=== PATIENT | female | born 1970 | race Caucasian/White ===

== ENCOUNTER 2016-06-21 17:19 | Emergency (ER) | payer SELFPAY ==
[~2016-06-21] VITALS: Ht 162.6 cm; Wt 85.3 kg
[~2016-06-21 17:19] MED LIST: ACHD5005 PO; ALPR.5T PO; ALPR1T PO; AMPH15CA3 PO; Anti-depressant; BPR150TCR PO; CTLP20T PO; CYCL10TA9 PO; DOXY100C2 PO; FLUO40CA12 PO; HYDR1CAP2 PO; IBP800T PO; MTF500T PO; NAPR-243 PO; PRD20T PO; PRD50T PO; TRAM50TA2 PO; TRM50T PO
[2016-06-21] MEDS ORDERED: ALPR2TAB2 PO (18:12)
--- NOTE | 2016-06-21 21:30 | ED Neck-Back Pain/Injury ---
General Chief Complaint: Head/Cervical Problems Stated Complaint: BACK OF NECK PAIN AND SWELLING/MIGRAINE Nursing Triage Note: pt c/o lower, posterior neck swelling x 2-3 weeks. fritz henry gave her muscle relaxers for neck et back pain. she reports pain radiating into head et causing headache starting yesterday. Nursing Sepsis Screen: No Definite Risk Source of Information: Patient Exam Limitations: No Limitations History of Present Illness Time Seen by Provider: 21:30 Initial Comments 45-year-old female patient presents to the emergency department complains of lower posterior neck swelling for to 3 weeks. Patient states she was seen by Fritz Henry at [facility] was given muscle relaxants without improvement in symptoms. States now pain is radiating up the neck and scalp causing a headache. Does complain of photophobia and sound sensitivity. Timing/Duration: Getting Worse, Other (2-3 wks.) Pain/Injury Location: Neck Radiation: Other (radiates up the neck and scalp causing a headache. ) Method of Injury: Unknown Modifying Factors: Improves With Immobilization, Worse With Movement, Worse With Other (no improvement with cyclobenzaprine.) Associated Symptoms: No muscle spasms, No weakness, No numbness in legs/feet, No tingling in legs/feet, No sensory/motor loss, No loss of bladder control, No loss of bowel control Allergies and Home Medications Allergies Coded Allergies: No Known Drug Allergies (Unverified , 03/30/11) Home Medications Alprazolam 2 Mg Tablet, 2 MG PO BID PRN for ANXIETY, (Reported) Cyclobenzaprine HCl 10 Mg Tablet, 10 MG PO Q8H PRN for SPASMS, #14 Ref 0 Prescribed by: DAVID MOHAN on 12/06/15 1349 Cyclobenzaprine HCl 10 Mg Tablet, 10 MG PO Q8H PRN for SPASMS, #14 Ref 0 Prescribed by: DAVID MOHAN on 06/21/16 213 Fluoxetine HCl 40 Mg Capsule, 60 MG PO DAILY, (Reported) Naproxen 500 Mg Tablet, 500 MG PO BID, #20 Ref 0 Prescribed by: DAVID MOHAN on 06/21/162137 Prednisone 20 Mg Tab, 40 MG PO DAILY for 5 Days, #10 Ref 0 Prescribed by: DAVID MOHAN on 06/21/162137 Tramadol HCl 50 Mg Tablet, 50 MG PO Q4H PRN for PAIN, #20 Ref 0 Prescribed by: DAVID MOHAN on 12/06/15 2599 Constitutional: No chills, No dizziness, No fever, No malaise, No weakness EENTM: other ((+) photophobia and sound sensitivities. ), No ear discharge, No ear pain, No mouth pain, No nose congestion, No throat pain, No vision loss Respiratory: no symptoms reported Cardiovascular: no symptoms reported Gastrointestinal: No abdominal pain, No diarrhea, No loss of appetite, No nausea, No vomiting Genitourinary: no symptoms reported Musculoskeletal: see HPI, back pain (chronic back pain.), neck pain Skin: No change in color, No lesions, No lumps, No rash Psychiatric/Neurological: Headache, Denies Numbness, Denies Paresthesia, Denies Seizure, Denies Tingling, Denies Weakness All Other Systems Reviewed Negative Unless Noted: Yes (Negative excepted noted.) Past Yzbrtop-Rhqnoa-Osvgat Hx Patient Social History Alcohol Use: Denies Use Recreational Drug Use: No Smoking Status: Current Everyday Smoker Type Used: Cigarettes Recent Foreign Travel: No Contact w/Someone Who Travel: No Recent Infectious Disease Expo: No Recent Hopitalizations: No Immunizations Up To Date Tetanus Booster (TDap): Less than 5yrs PED Vaccines UTD: Yes Date of Pneumonia Vaccine: Nov 24, 2009 Date of Influenza Vaccine: Dec 25, 2011 Surgeries HX Surgeries: Yes Surgeries: Section, Hysterectomy, Orthopedic Respiratory Hx Respiratory Disorders: Yes Respiratory Disorders: Tuberculosis Cardiovascular Hx Cardiac Disorders: No Neurological Hx Neurological Disorders: No Reproductive System Hx Reproductive Disorders: Yes (fibroids) Female Reproductive Disorders: Menstrual 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 Genitourinary Hx Genitourinary Disorders: No Gastrointestinal Hx Gastrointestinal Disorders: No Musculoskeletal Hx Musculoskeletal Disorders: Yes Musculoskeletal Disorders: Chronic Back Pain Endocrine Hx Endocrine Disorders: No (STATES SHE TAKES METFORMIN FOR WEIGHT LOSS, NOT DIABETES) HEENT HX ENT Disorders: No Cancer Hx Cancer: No Psychosocial Hx Psychiatric Problems: Yes Behavioral Health Disorders: Anxiety, Depression Integumentary HX Skin/Integumentary Disorder: No Blood Transfusions Hx Blood Disorders: No Adverse Reaction to a Blood Tr: No Reviewed Nursing Assessment Reviewed/Agree w Nursing PMH: Yes Family Medical History Significant Family History: No Pertinent Family Hx, Cancer Physical Exam Vital Signs Capillary Refill : Less Than 3 Seconds General Appearance: No Apparent Distress, WD/WN HEENT: PERRL/EOMI, TMs Normal, Normal ENT Inspection, Pharynx Normal, Photophobia Neck: Supple, Limited Range of Motion, Tender Lateral ((lateral posterior neck) ), No Tender Midline, Other ((+) muscle spasm of the posterior neck muscles. 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 Plan for discharge to home. Patient given Toradol , Norflex, Benadryl, and Zofran. Patient reports improvement in symptoms with medications. Patient ambulated from the emergency department without difficulty. Impression Impression: Primary Impression: Torticollis Additional Impression: Tension headache Disposition: 01 HOME, SELF-CARE Condition: Improved Departure-Patient Inst. Decision time for Depature: 21:37 Referrals: [facility] (PCP/Family) Primary Care Physician Patient Instructions: Tension Headache (DC), Torticollis (DC) Add. Discharge Instructions: All discharge instructions reviewed with patient and/or family. Voiced understanding. Medications as instructed. Tylenol Extra Strength over-the- counter as directed for pain. Drink plenty fluids. Rest. Follow-up with your family practitioner for recheck if no improvement in symptoms. Call for appointment time if needed. Return to the emergency department for worsened pain, numbness, weakness, headache, dizziness, changes in behavior, slurred speech, shortness of air, chest pain, seizure, vomiting, or any other concerns. Scripts Cyclobenzaprine HCl (Cyclobenzaprine HCl) 10 Mg Tablet 10 MG PO Q8H Y for SPASMS, #14 TAB 0 Refills Prov: DAVID MOHAN 06/21/16 Naproxen (Naprosyn) 500 Mg Tablet 500 MG PO BID, #20 TAB 0 Refills Prov: DAVID MOHAN 06/21/16 Prednisone (Prednisone) 20 Mg Tab 40 MG PO DAILY for 5 Days, #10 TAB 0 Refills Prov: DAVID MOHAN 06/21/16 DAVID MOHAN Jun 21, 2016 21:30
[2016-06-21] MEDS ORDERED: KETOROLAC 60 MG/2 ML VIAL IM STA (21:35)
[2016-06-21] MEDS ORDERED: ORPHENADRINE 60 MG/2 ML (NORFLEX) AMP IM STA (21:35)
[2016-06-21] MEDS ORDERED: ONDANSETRON 4 MG (ZOFRAN) ORAL DISSOLVE TAB SL STA (21:35)
[2016-06-21] MEDS ORDERED: NAPR500T PO (21:38)
[2016-06-21] MEDS ORDERED: PRD20T PO (21:38)
[2016-06-21] MEDS ORDERED: CYCL10TA9 PO (21:38)
[2016-06-21] MEDS ORDERED: diphenhydrAMINE 25 MG TAB (BENADRYL) PO ONE (21:45)
[2016-06-21] MEDS ORDERED: RX-TRAMADOL 50 MG (ULTRAM) TAB PPK#4 PO STA (22:15)
[2016-06-21 22:23] VITALS: BP 112/88
--- OUTSIDE RECORDS SUMMARY | 2016-07-16 05:08 | XMS REPORT ---
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 Phone CLYDE CHRIS Unavailable PROBLEMS Type Condition ICD9-CM Code [id number] Code Onset Dates Condition Status SNOMED Code Problem Unspecified backache 724.5 Active 983363297 Problem Excessive or frequent menstruation 626.2 Active 502182920 Problem Dermatophytosis of nail 110.1 Active 205304141 Problem Encounter for long-term (current) use of other medications V58.69 Active 853810472 Problem Hematuria, unspecified 599.70 Active 54825535 Problem Anxiety state, unspecified 300.00 Active 360673728 Problem Major depressive disorder, recurrent episode, moderate 296.32 Active 71277956 Problem Dysmenorrhea 625.3 Active 327952124 Problem Leiomyoma of uterus, unspecified 218.9 Active 56727146 Problem Obesity, unspecified 278.00 Active 140697365 Problem Attention deficit disorder of childhood without mention of hyperactivity 314.00 Active 51227169 ALLERGIES Unknown Allergies SOCIAL HISTORY No smoking Hx information available PLAN OF CARE VITAL SIGNS MEDICATIONS Medication Instructions Dosage Frequency Start Date End Date Duration Status Cyclobenzaprine HCl 10 mg Orally 2 times a day 1 tablet 12h Nov, Active Tramadol HCl 50 mg Orally every 6 hrs 1 tablet as needed 6h Nov, Active RESULTS No Results PROCEDURES No Known procedures IMMUNIZATIONS No Known Immunizations
--- OUTSIDE RECORDS SUMMARY | 2016-07-16 05:08 | XMS REPORT | Continuity of Care Document ---
Author Author [facility] Organization [facility] Address Unknown Phone Unavailable Allergies Active Description Code Type Severity Reaction Onset Reported/Identified Relationship to Patient Clinical Status Yes No Known Drug Allergies [id number] Drug Allergy Unknown N/ A 03/30/2011 Medications Problems Date Dx Coded Attending Type Code Diagnosis Diagnosed By 07/20/2010 Ot 723.1 CERVICALGIA 07/20/2010 Ot 784.0 HEADACHE 07/29/2010 296.90 MOOD DISORDER 07/29/2010 300.02 AN GEN ANXIETY 07/29/2010 301.3 QUARRELSOMENESS (EXPLOSIVE PERSONALITY) 07/29/2010 780.50 SLEEP DISTURBANCE, UNSPECIFIED 07/29/2010 780.79 MALAISE AND FATIGUE 07/29/2010 296.90 MOOD DISORDER 07/29/2010 300.02 AN GEN ANXIETY 07/29/2010 301.3 QUARRELSOMENESS (EXPLOSIVE PERSONALITY) 07/29/2010 780.50 SLEEP DISTURBANCE, UNSPECIFIED 07/29/2010 780.79 MALAISE AND FATIGUE 07/29/2010 296.90 MOOD DISORDER 07/29/2010 300.02 AN GEN ANXIETY 07/29/2010 301.3 QUARRELSOMENESS (EXPLOSIVE PERSONALITY) 07/29/2010 780.50 SLEEP DISTURBANCE, UNSPECIFIED 07/29/2010 780.79 MALAISE AND FATIGUE 07/29/2010 296.90 MOOD DISORDER 07/29/2010 300.02 AN GEN ANXIETY 07/29/2010 301.3 QUARRELSOMENESS (EXPLOSIVE PERSONALITY) 07/29/2010 780.50 SLEEP DISTURBANCE, UNSPECIFIED 07/29/2010 780.79 MALAISE AND FATIGUE 07/29/2010 296.90 MOOD DISORDER 07/29/2010 300.02 AN GEN ANXIETY 07/29/2010 301.3 QUARRELSOMENESS (EXPLOSIVE PERSONALITY) 07/29/2010 780.50 SLEEP DISTURBANCE, UNSPECIFIED 07/29/2010 780.79 MALAISE AND FATIGUE 07/29/2010 296.90 MOOD DISORDER 07/29/2010 300.02 AN GEN ANXIETY 07/29/2010 301.3 QUARRELSOMENESS (EXPLOSIVE PERSONALITY) 07/29/2010 780.50 SLEEP DISTURBANCE, UNSPECIFIED 07/29/2010 780.79 MALAISE AND FATIGUE 07/29/2010 296.90 MOOD DISORDER 07/29/2010 300.02 AN GEN ANXIETY 07/29/2010 301.3 QUARRELSOMENESS (EXPLOSIVE PERSONALITY) 07/29/2010 780.50 SLEEP DISTURBANCE, UNSPECIFIED 07/29/2010 780.79 MALAISE AND FATIGUE 07/29/2010 CHRIS TANG APRN 296.90 MOOD DISORDER 07/29/2010 CHRSI TANG APRN 300.02 AN GEN ANXIETY 07/29/2010 CHRIS TANG APRN 301.3 QUARRELSOMENESS (EXPLOSIVE PERSONALITY) 07/29/2010 CHRIS TANG APRN 780.50 SLEEP DISTURBANCE, UNSPECIFIED 07/29/2010 CHRIS TANG APRN 780.79 MALAISE AND FATIGUE 07/29/2010 CHRIS TANG APRN 296.90 MOOD DISORDER 07/29/2010 CHRIS TANG APRN 300.02 AN GEN ANXIETY 07/29/2010 CHRIS TANG APRN 301.3 QUARRELSOMENESS (EXPLOSIVE PERSONALITY) 07/29/2010 CHRIS TANG APRN 780.50 SLEEP DISTURBANCE, UNSPECIFIED 07/29/2010 CHRIS TANG APRN 780.79 MALAISE AND FATIGUE 07/29/2010 CHRIS TANG APRN 296.90 MOOD DISORDER 07/29/2010 CHRIS TANG APRN 300.02 AN GEN ANXIETY 07/29/2010 CHRIS TANG APRN 301.3 QUARRELSOMENESS (EXPLOSIVE PERSONALITY) 07/29/2010 CHRIS TANG APRN 780.50 SLEEP DISTURBANCE, UNSPECIFIED 07/29/2010 CHRIS TANG APRN 780.79 MALAISE AND FATIGUE 07/29/2010 MELENDEZ DO ADELAIDE K 296.90 MOOD DISORDER 07/29/2010 MELENDEZ DO [place] K 300.02 AN GEN ANXIETY 07/29/2010 MELENDEZ DO, ADELAIDE K 301.3 QUARRELSOMENESS (EXPLOSIVE PERSONALITY) 07/29/2010 MELENDEZ DO A[place]LAIDE K 780.50 SLEEP DISTURBANCE, UNSPECIFIED 07/29/2010 MELENDEZ DO, ADELAIDE K 780.79 MALAISE AND FATIGUE 07/29/2010 CHRIS TANG APRN T 296.90 MOOD DISORDER 07/29/2010 CHRIS TANG APRN T 300.02 AN GEN ANXIETY 07/29/2010 CHRIS TANG APRN T 301.3 QUARRELSOMENESS (EXPLOSIVE PERSONALITY) 07/29/2010 CHRIS TANG APRN T 780.50 SLEEP DISTURBANCE, UNSPECIFIED 07/29/2010 CHRIS TANG APRN T 780.79 MALAISE AND FATIGUE 07/29/2010 CHRIS TANG APRN T 296.90 MOOD DISORDER 07/29/2010 CHRIS TANG APRN T 300.02 AN GEN ANXIETY 07/29/2010 CHRIS TANG APRN T 301.3 QUARRELSOMENESS (EXPLOSIVE PERSONALITY) 07/29/2010 CHRIS TANG APRN T 780.50 SLEEP DISTURBANCE, UNSPECIFIED 07/29/2010 CHRIS TANG APRN T 780.79 MALAISE AND FATIGUE 07/29/2010 CHRIS TANG APRN T 296.90 MOOD DISORDER 07/29/2010 CHRIS TANG APRN 300.02 AN GEN ANXIETY 07/29/2010 CHRIS TANG APRN 301.3 QUARRELSOMENESS (EXPLOSIVE PERSONALITY) 07/29/2010 CHRIS TANG APRN T 780.50 SLEEP DISTURBANCE, UNSPECIFIED 07/29/2010 CHRIS TANG APRN T 780.79 MALAISE AND FATIGUE 07/29/2010 CHRIS TANG APRN T 296.90 MOOD DISORDER 07/29/2010 CHRIS TANG APRN T 300.02 AN GEN ANXIETY 07/29/2010 CHRIS TANG APRN T 301.3 QUARRELSOMENESS (EXPLOSIVE PERSONALITY) 07/29/2010 CHRIS TANG APRN T 780.50 SLEEP DISTURBANCE, UNSPECIFIED 07/29/2010 CHRIS TANG APRN T 780.79 MALAISE AND FATIGUE 07/29/2010 CHRIS TANG APRN T 296.90 MOOD DISORDER 07/29/2010 CHRIS TANG APRN T 300.02 AN GEN ANXIETY 07/29/2010 CHRIS TANG APRN T 301.3 QUARRELSOMENESS (EXPLOSIVE PERSONALITY) 07/29/2010 CHRIS TANG APRN T 780.50 SLEEP DISTURBANCE, UNSPECIFIED 07/29/2010 CHRIS TANG APRN T 780.79 MALAISE AND FATIGUE 11/25/2010 616.0 NABOTHIAN CYST 11/25/2010 625.0 DYSPAREUNIA 11/25/2010 626.4 irregular length of menstrual periods 11/25/2010 728.85 MUSCLE SPASM 11/25/2010 V16.3 FAM HX CANCER, BREAST 11/25/2010 V72.31 ROUTINE PELVIC EXAM 11/25/2010 616.0 NABOTHIAN CYST 11/25/2010 625.0 DYSPAREUNIA 11/25/2010 626.4 irregular length of menstrual periods 11/25/2010 728.85 MUSCLE SPASM 11/25/2010 V16.3 FAM HX CANCER, BREAST 11/25/2010 V72.31 ROUTINE PELVIC EXAM 11/25/2010 616.0 NABOTHIAN CYST 11/25/2010 625.0 DYSPAREUNIA 11/25/2010 626.4 irregular length of menstrual periods 11/25/2010 728.85 MUSCLE SPASM 11/25/2010 V16.3 FAM HX CANCER, BREAST 11/25/2010 V72.31 ROUTINE PELVIC EXAM 11/25/2010 616.0 NABOTHIAN CYST 11/25/2010 625.0 DYSPAREUNIA 11/25/2010 626.4 irregular length of menstrual periods 11/25/2010 728.85 MUSCLE SPASM 11/25/2010 V16.3 FAM HX CANCER, BREAST 11/25/2010 V72.31 ROUTINE PELVIC EXAM 11/25/2010 616.0 NABOTHIAN CYST 11/25/2010 625.0 DYSPAREUNIA 11/25/2010 626.4 irregular length of menstrual periods 11/25/2010 728.85 MUSCLE SPASM 11/25/2010 V16.3 FAM HX CANCER, BREAST 11/25/2010 V72.31 ROUTINE PELVIC EXAM 11/25/2010 616.0 NABOTHIAN CYST 11/25/2010 625.0 DYSPAREUNIA 11/25/2010 626.4 irregular length of menstrual periods 11/25/2010 728.85 MUSCLE SPASM 11/25/2010 V16.3 FAM HX CANCER, BREAST 11/25/2010 V72.31 ROUTINE PELVIC EXAM 11/25/2010 616.0 NABOTHIAN CYST 11/25/2010 625.0 DYSPAREUNIA 11/25/2010 626.4 irregular length of menstrual periods 11/25/2010 728.85 MUSCLE SPASM 11/25/2010 V16.3 FAM HX CANCER, BREAST 11/25/2010 V72.31 ROUTINE PELVIC EXAM 11/25/2010 CHRIS TANG APRN 616.0 NABOTHIAN CYST 11/25/2010 CHRIS TANG APRN 625.0 DYSPAREUNIA 11/25/2010 CHRIS TANG APRN 626.4 irregular length of menstrual periods 11/25/2010 CHRIS TANG APRN 728.85 MUSCLE SPASM 11/25/2010 CHRIS TANG APRN V16.3 FAM HX CANCER, BREAST 11/25/2010 CHRIS TANG APRN V72.31 ROUTINE PELVIC EXAM 11/25/2010 CHRIS TANG APRN 616.0 NABOTHIAN CYST 11/25/2010 CHRIS TANG APRN 625.0 DYSPAREUNIA 11/25/2010 CHRIS TANG APRN 626.4 irregular length of menstrual periods 11/25/2010 CHRIS TANG APRN 728.85 MUSCLE SPASM 11/25/2010 CHRIS TANG APRN V16.3 FAM HX CANCER, BREAST 11/25/2010 CHRIS TANG APRN V72.31 ROUTINE PELVIC EXAM 11/25/2010 CHRIS TANG APRN 616.0 NABOTHIAN CYST 11/25/2010 CRHIS TANG APRN 625.0 DYSPAREUNIA 11/25/2010 CHRIS TANG APRN 626.4 irregular length of menstrual periods 11/25/2010 CHRIS TANG APRN 728.85 MUSCLE SPASM 11/25/2010 CHRIS TANG APRN V16.3 FAM HX CANCER, BREAST 11/25/2010 CHRIS TANG APRN V72.31 ROUTINE PELVIC EXAM 11/25/2010 AL DO A[place]LAIDE K 616.0 NABOTHIAN CYST 11/25/2010 MELENDEZ DO ADELAIDE K 625.0 DYSPAREUNIA 11/25/2010 MELENDEZ DO, ADELAIDE K 626.4 irregular length of menstrual periods 11/25/2010 MELENDEZ DO [place] K 728.85 MUSCLE SPASM 11/25/2010 MELENDEZ DO [place] K V16.3 FAM HX CANCER, BREAST 11/25/2010 MELENDEZ DO [place] K V72.31 ROUTINE PELVIC EXAM 11/25/2010 CHRIS TANG APRN 616.0 NABOTHIAN CYST 11/25/2010 CHRIS TANG APRN 625.0 DYSPAREUNIA 11/25/2010 CLYDE HAND ALTERATIONS TAILOR, CHRIS T 626.4 IRREGULAR LENGTH OF MENSTRUAL PERIODS 11/25/2010 CHRIS TANG APRN T 728.85 MUSCLE SPASM 11/25/2010 CHRIS TANG APRN T V16.3 FAM HX CANCER, BREAST 11/25/2010 CHRIS TANG APRN T V72.31 ROUTINE PELVIC EXAM 11/25/2010 CHRIS TANG APRN T 616.0 NABOTHIAN CYST 11/25/2010 CHRIS TANG APRN T 625.0 DYSPAREUNIA 11/25/2010 CHRIS TANG APRN 626.4 IRREGULAR LENGTH OF MENSTRUAL PERIODS 11/25/2010 CHRIS TANG APRN T 728.85 MUSCLE SPASM 11/25/2010 CHRIS TANG APRN V16.3 FAM HX CANCER, BREAST 11/25/2010 CHRIS TANG APRN V72.31 ROUTINE PELVIC EXAM 11/25/2010 CHRIS TANG APRN 616.0 NABOTHIAN CYST 11/25/2010 CHRIS TANG APRN 625.0 DYSPAREUNIA 11/25/2010 CHRIS TANG APRN 626.4 IRREGULAR LENGTH OF MENSTRUAL PERIODS 11/25/2010 CHRIS TANG APRN T 728.85 MUSCLE SPASM 11/25/2010 CHRIS TANG APRN V16.3 FAM HX CANCER, BREAST 11/25/2010 CHRIS TANG APRN V72.31 ROUTINE PELVIC EXAM 11/25/2010 CHRIS TANG APRN T 616.0 NABOTHIAN CYST 11/25/2010 CHRIS TANG APRN 625.0 DYSPAREUNIA 11/25/2010 CHRIS TANG APRN 626.4 IRREGULAR LENGTH OF MENSTRUAL PERIODS 11/25/2010 CHRIS TANG APRN T 728.85 MUSCLE SPASM 11/25/2010 CHRIS TANG APRN V16.3 FAM HX CANCER, BREAST 11/25/2010 CHRIS TANG APRN T V72.31 ROUTINE PELVIC EXAM 11/25/2010 CHRIS TANG APRN T 616.0 NABOTHIAN CYST 11/25/2010 CHRIS TANG APRN T 625.0 DYSPAREUNIA 11/25/2010 CHRIS TANG APRN T 626.4 IRREGULAR LENGTH OF MENSTRUAL PERIODS 11/25/2010 CHRIS TANG APRN T 728.85 MUSCLE SPASM 11/25/2010 CHRIS TANG APRN V16.3 FAM HX CANCER, BREAST 11/25/2010 CHRIS TANG APRN V72.31 ROUTINE PELVIC EXAM 03/30/2011 Ot 466.0 ACUTE BRONCHITIS 03/30/2011 Ot 786.2 COUGH 03/30/2011 Ot V15.82 HISTORY OF TOBACCO USE 05/20/2011 Ot 079.99 VIRAL INFECTION NOS 05/20/2011 Ot 780.60 FEVER, UNSPECIFIED 05/20/2011 Ot 786.2 COUGH 07/09/2011 Ot 724.2 LUMBAGO 10/20/2011 Ot 311 DEPRESSIVE DISORDER NEC 10/20/2011 Ot 786.50 CHEST PAIN NOS 10/25/2011 296.32 MO DEPRESSIVE RECURRENT MODERATE 10/25/2011 300.00 AN ANXIETY UNSPEC 10/25/2011 296.32 MO DEPRESSIVE RECURRENT MODERATE 10/25/2011 300.00 AN ANXIETY UNSPEC 10/25/2011 296.32 MO DEPRESSIVE RECURRENT MODERATE 10/25/2011 300.00 AN ANXIETY UNSPEC 10/25/2011 296.32 MO DEPRESSIVE RECURRENT MODERATE 10/25/2011 300.00 AN ANXIETY UNSPEC 10/25/2011 296.32 MO DEPRESSIVE RECURRENT MODERATE 10/25/2011 300.00 AN ANXIETY UNSPEC 10/25/2011 296.32 MO DEPRESSIVE RECURRENT MODERATE 10/25/2011 300.00 AN ANXIETY UNSPEC 10/25/2011 296.32 MO DEPRESSIVE RECURRENT MODERATE 10/25/2011 300.00 AN ANXIETY UNSPEC 10/25/2011 CHRIS TANG APRN 296.32 MO DEPRESSIVE RECURRENT MODERATE 10/25/2011 CHRIS TANG APRN 300.00 AN ANXIETY UNSPEC 10/25/2011 CHRIS ATNG APRN 296.32 MO DEPRESSIVE RECURRENT MODERATE 10/25/2011 CHRIS TANG APRN 300.00 AN ANXIETY UNSPEC 10/25/2011 CHRIS TANG APRN 296.32 MO DEPRESSIVE RECURRENT MODERATE 10/25/2011 CHRIS TANG APRN 300.00 AN ANXIETY UNSPEC 10/25/2011 A[place]LAIDE MELENDEZ DO 296.32 MO DEPRESSIVE RECURRENT MODERATE 10/25/2011 [place] MELENDEZ DO 300.00 AN ANXIETY UNSPEC 10/25/2011 CHRIS TANG APRN 296.32 MO DEPRESSIVE RECURRENT MODERATE 10/25/2011 CHRIS TANG APRN 300.00 AN ANXIETY UNSPEC 10/25/2011 CHRIS TANG APRN 296.32 MO DEPRESSIVE RECURRENT MODERATE 10/25/2011 CHRIS TANG APRN 300.00 AN ANXIETY UNSPEC 10/25/2011 CHRIS TANG APRN 296.32 MO DEPRESSIVE RECURRENT MODERATE 10/25/2011 CHRIS TANG APRN 300.00 AN ANXIETY UNSPEC 10/25/2011 CHRIS TANG APRN 296.32 MO DEPRESSIVE RECURRENT MODERATE 10/25/2011 CHIRS TANG APRN 300.00 AN ANXIETY UNSPEC 10/25/2011 CHRIS TANG APRN 296.32 MO DEPRESSIVE RECURRENT MODERATE 10/25/2011 CHRIS TANG APRN 300.00 AN ANXIETY UNSPEC 03/29/2012 Ot 844.9 SPRAIN OF KNEE LEG NOS 03/29/2012 Ot 959.7 LOWER LEG INJURY NOS 03/29/2012 Ot E000.8 OTHER EXTERNAL CAUSE STATUS 03/29/2012 Ot E849.0 ACCIDENT IN HOME 03/29/2012 Ot E884.2 FALL FROM CHAIR 05/20/2012 218.9 LEIOMYOMA OF UTERUS UNSPECIFIED 05/20/2012 625.3 DYSMENORRHEA 05/20/2012 626.2 MENORRHAGIA 05/20/2012 218.9 LEIOMYOMA OF UTERUS UNSPECIFIED 05/20/2012 625.3 DYSMENORRHEA 05/20/2012 626.2 MENORRHAGIA 05/20/2012 218.9 LEIOMYOMA OF UTERUS UNSPECIFIED 05/20/2012 625.3 DYSMENORRHEA 05/20/2012 626.2 MENORRHAGIA 05/20/2012 218.9 LEIOMYOMA OF UTERUS UNSPECIFIED 05/20/2012 625.3 DYSMENORRHEA 05/20/2012 626.2 MENORRHAGIA 05/20/2012 218.9 LEIOMYOMA OF UTERUS UNSPECIFIED 05/20/2012 625.3 DYSMENORRHEA 05/20/2012 626.2 MENORRHAGIA 05/20/2012 CHRIS TANG APRN 218.9 LEIOMYOMA OF UTERUS UNSPECIFIED 05/20/2012 CHRIS TANG APRN 625.3 DYSMENORRHEA 05/20/2012 CHRIS TANG APRN 626.2 MENORRHAGIA 05/20/2012 CHRIS TANG APRN 218.9 LEIOMYOMA OF UTERUS UNSPECIFIED 05/20/2012 CHRIS TANG APRN 625.3 DYSMENORRHEA 05/20/2012 CHRIS TANG APRN 626.2 MENORRHAGIA 05/20/2012 CHRIS TANG APRN 218.9 LEIOMYOMA OF UTERUS UNSPECIFIED 05/20/2012 CHRIS TANG APRN 625.3 DYSMENORRHEA 05/20/2012 CHRIS TANG APRN T 626.2 MENORRHAGIA 05/20/2012 MELENDEZ DO, ADELAIDE K 218.9 LEIOMYOMA OF UTERUS UNSPECIFIED 05/20/2012 MELENDEZ DO, [place]LAIDE K 625.3 DYSMENORRHEA 05/20/2012 MELENDEZ DO, A[place]LAIDE K 626.2 MENORRHAGIA 05/20/2012 CHRIS TANG APRN T 218.9 LEIOMYOMA OF UTERUS UNSPECIFIED 05/20/2012 CHRIS TANG APRN T 625.3 DYSMENORRHEA 05/20/2012 CHRIS TANG APRN T 626.2 MENORRHAGIA 05/20/2012 CHRIS TANG APRN T 218.9 LEIOMYOMA OF UTERUS UNSPECIFIED 05/20/2012 CHRIS TANG APRN 625.3 DYSMENORRHEA 05/20/2012 CHRIS TANG APRN T 626.2 MENORRHAGIA 05/20/2012 CHRIS TANG APRN 218.9 LEIOMYOMA OF UTERUS UNSPECIFIED 05/20/2012 CHRIS TANG APRN T 625.3 DYSMENORRHEA 05/20/2012 CHRIS TANG APRN T 626.2 MENORRHAGIA 05/20/2012 CHRIS TANG APRN T 218.9 LEIOMYOMA OF UTERUS UNSPECIFIED 05/20/2012 CHRIS TANG APRN T 625.3 DYSMENORRHEA 05/20/2012 CHRIS TANG APRN T 626.2 MENORRHAGIA 05/20/2012 CHRIS TANG APRN 218.9 LEIOMYOMA OF UTERUS UNSPECIFIED 05/20/2012 CHRIS TANG APRN 625.3 DYSMENORRHEA 05/20/2012 CHRIS TANG APRN T 626.2 MENORRHAGIA 06/19/2012 599.70 HEMATURIA 06/19/2012 724.5 BACK PAIN, GENERAL 06/19/2012 599.70 HEMATURIA 06/19/2012 724.5 BACK PAIN, GENERAL 06/19/2012 599.70 HEMATURIA 06/19/2012 724.5 BACK PAIN, GENERAL 06/19/2012 599.70 HEMATURIA 06/19/2012 724.5 BACK PAIN, GENERAL 06/19/2012 CHRIS TANG APRN 599.70 HEMATURIA 06/19/2012 CHRIS TANG APRN 724.5 BACK PAIN, GENERAL 06/19/2012 CHRIS TANG APRN 599.70 HEMATURIA 06/19/2012 CLYDE DEWEY, CHRIS T 724.5 BACK PAIN, GENERAL 06/19/2012 CLYDE DEWEY, CHRIS T 599.70 HEMATURIA 06/19/2012 CLYDE CESARN, CHRIS T 724.5 BACK PAIN, GENERAL 06/19/2012 MELENDEZ DO [place]LA[place] K 599.70 HEMATURIA 06/19/2012 MELENDEZ DO, [place]LA[place] K 724.5 BACK PAIN, GENERAL 06/19/2012 CHRIS TANG APRN T 599.70 HEMATURIA 06/19/2012 CLYDE CESARN, CHRIS T 724.5 BACK PAIN, GENERAL 06/19/2012 CLYDE CESARN, CHRIS T 599.70 HEMATURIA 06/19/2012 CLYDE DEWEY, CHRIS T 724.5 BACK PAIN, GENERAL 06/19/2012 CHRIS TANG APRN T 599.70 HEMATURIA 06/19/2012 CLYDE DEWEY, CHRIS T 724.5 BACK PAIN, GENERAL 06/19/2012 CHRIS TANG APRN T 599.70 HEMATURIA 06/19/2012 CHRIS TANG APRN T 724.5 BACK PAIN, GENERAL 06/19/2012 CHRIS TANG APRN T 599.70 HEMATURIA 06/19/2012 CLYDE DEWEY, CHRIS T 724.5 BACK PAIN, GENERAL 07/09/2012 278.00 OBESITY 07/09/2012 278.00 OBESITY 07/09/2012 278.00 OBESITY 07/09/2012 CHRIS TANG APRN T 278.00 OBESITY 07/09/2012 CHRIS TANG APRN T 278.00 OBESITY 07/09/2012 CHRIS TANG APRN T 278.00 OBESITY 07/09/2012 MELENDEZ DO, [place]LA[place] K 278.00 OBESITY 07/09/2012 CHRIS TANG APRN T 278.00 OBESITY 07/09/2012 CHRIS TANG APRN T 278.00 OBESITY 07/09/2012 CLYDE DEWEY CHRIS T 278.00 OBESITY 07/09/2012 CHRIS TANG APRN T 278.00 OBESITY 07/09/2012 CHRIS TANG APRN T 278.00 OBESITY 09/04/2012 DAI DO, ONEYDA C Ot 218.0 SUBMUCOUS LEIOMYOMA 09/04/2012 DAI DO ONEYDA C Ot 218.1 INTRAMURAL LEIOMYOMA 09/04/2012 DAI DO ONEYDA C Ot 218.2 SUBSEROUS LEIOMYOMA 09/04/2012 DAI DO, ONEYDA C Ot 617.2 TUBAL ENDOMETRIOSIS 09/04/2012 ONEYDA DAI DO Ot 617.3 PELV PERIT ENDOMETRIOSIS 09/04/2012 ONEYDA DAI DO C Ot 617.8 ENDOMETRIOSIS NEC 09/04/2012 ONEYDA DAI DO Ot 620.2 OVARIAN CYST NEC/NOS 09/04/2012 ONEYDA DAI DO Ot 620.8 NONINFL DIS OVA/ADNX NEC 09/04/2012 ONEYDA DAI DO Ot 625.3 DYSMENORRHEA 09/04/2012 ONEYDA DAI DO Ot 626.2 EXCESSIVE MENSTRUATION 09/14/2012 SOFIYA VIDES NADIA K Ot 564.00 UNSPEC CONSTIPATION 09/14/2012 SOFIYA VIDES NADIA K Ot 623.8 NONINFLAM DIS VAGINA NEC 09/14/2012 SOFIYA VIDES NADIA K Ot 998.11 HEMOR COMPLIC A PROCEDURE 02/17/2013 CHRIS TANG APRN 110.1 ONYCHOMYCOSIS 02/17/2013 CHRIS TANG APRN 110.1 ONYCHOMYCOSIS 02/17/2013 [place] MELENDEZ DO 110.1 ONYCHOMYCOSIS 02/17/2013 CHRIS TANG APRN 110.1 ONYCHOMYCOSIS 02/17/2013 CHRIS TANG APRN 110.1 ONYCHOMYCOSIS 02/17/2013 CHRIS TANG APRN T 110.1 ONYCHOMYCOSIS 02/17/2013 CHRIS TANG APRN 110.1 ONYCHOMYCOSIS 02/17/2013 CHRIS TANG APRN 110.1 ONYCHOMYCOSIS 06/20/2013 [place] MELENDEZ DO K V58.69 MEDICATION HIGH RISK 06/20/2013 CHRIS TANG APRN V58.69 MEDICATION HIGH RISK 06/20/2013 CHRIS TANG APRN V58.69 MEDICATION HIGH RISK 06/20/2013 CHRIS TANG APRN V58.69 MEDICATION HIGH RISK 06/20/2013 CHRIS TANG APRN V58.69 MEDICATION HIGH RISK 06/20/2013 CHRIS TANG APRN V58.69 MEDICATION HIGH RISK 11/12/2013 CHRIS TANG APRN 314.00 ADHD INATTENTIVE 11/12/2013 CHRIS TANG APRN 314.00 ADHD INATTENTIVE 11/12/2013 CLYDE HAND ALTERATIONS TAILOR, CHRIS T 314.00 ADHD INATTENTIVE 11/12/2013 CHRIS TANG APRN T 314.00 ADHD INATTENTIVE 03/04/2014 Ot 611.72 03/04/2014 Ot V16.3 03/04/2014 Ot V76.12 03/04/2014 Ot 625.0 03/04/2014 Ot 625.8 03/04/2014 Ot 626.2 03/04/2014 DAI DO, ONEYDA C Ot 218.9 03/04/2014 DAI DO, ONEYDA C Ot 791.9 03/04/2014 DAI DO, ONEYDA C Ot V72.63 03/04/2014 DAI DO, ONEYDA C Ot V72.83 03/04/2014 DAI DO, ONEYDA C Ot V74.8 03/13/2014 Ot 611.72 03/13/2014 Ot V16.3 03/13/2014 Ot V76.12 03/13/2014 Ot 625.0 03/13/2014 Ot 625.8 03/13/2014 Ot 626.2 03/13/2014 DAI DO, ONEYDA C Ot 218.9 03/13/2014 ADI DO, ONEYDA C Ot 791.9 03/13/2014 DAI DO, ONEYDA C Ot V72.63 03/13/2014 DAI DO, ONEYDA C Ot V72.83 03/13/2014 DAI DO, ONEYDA C Ot V74.8 03/17/2014 DAI DO, ONEYDA C Ot V76.12 12/06/2015 DAVID LEMONS Ot F17.210 NICOTINE DEPENDENCE, CIGARETTES, UNCOMPL 12/06/2015 DAVID LEMONS Ot S33.5XXA SPRAIN OF LIGAMENTS OF LUMBAR SPINE, INI 12/06/2015 DAVID LEMONS Ot S39.92XA UNSPECIFIED INJURY OF LOWER BACK, INITIA 12/06/2015 DAVID LEMONS Ot W18.30XA FALL ON SAME LEVEL, UNSPECIFIED, INITIAL 12/06/2015 DAVID LEMONS Ot Y92.[address] IN UNSP NON-INSTITUT ( PRIVATE 12/06/2015 DAVID LEMONS Ot Y99.8 OTHER EXTERNAL CAUSE STATUS 12/06/2015 Ot 611.72 LUMP OR MASS IN BREAST 12/06/2015 Ot V16.3 FAMILY HX-BREAST MALIG 12/06/2015 Ot V76.12 OTH SCREEN MAMMO-MALIGN NEOPLASM OF YANET 12/06/2015 Ot 625.0 DYSPAREUNIA 12/06/2015 Ot 625.8 FEM GENITAL SYMPTOMS NEC 12/06/2015 Ot 626.2 EXCESSIVE MENSTRUATION 12/06/2015 DAIGabriel VIDES ONEYDA C Ot 218.9 UTERINE LEIOMYOMA NOS 12/06/2015 DAI DO ONEYDA C Ot 791.9 ABN URINE FINDINGS NEC 12/06/2015 DAIONEYDA Rios DO C Ot V72.63 PRE-PROCEDURAL LABORATORY EXAMINATION 12/06/2015 DAIONEYDA Rios DO C Ot V72.83 EXAM PRE-OPERATIVE NEC 12/06/2015 ONEYDA DAI DO Ot V74.8 SCREEN-BACTERIAL DIS NEC 12/06/2015 DAIONEYDA Rios DO Ot V76.12 OTH SCREEN MAMMO-MALIGN NEOPLASM OF YANET 12/08/2015 DAVID LEMONS Ot F17.210 NICOTINE DEPENDENCE, CIGARETTES, UNCOMPL 12/08/2015 DAVID LEMONS Ot S33.5XXA SPRAIN OF LIGAMENTS OF LUMBAR SPINE, INI 12/08/2015 DAVID LEMONS Ot S39.92XA UNSPECIFIED INJURY OF LOWER BACK, INITIA 12/08/2015 DAVID LEMONS Ot W18.30XA FALL ON SAME LEVEL, UNSPECIFIED, INITIAL 12/08/2015 DAVID LEMONS Ot Y92.[address] IN [facility] NON-INSTITUT ( PRIVATE 12/08/2015 DAVID LEMONS Ot Y99.8 OTHER EXTERNAL CAUSE STATUS 12/16/2015 DAVID LEMONS Ot F17.210 NICOTINE DEPENDENCE, CIGARETTES, UNCOMPL 12/16/2015 DAVID LEMONS Ot S33.5XXA SPRAIN OF LIGAMENTS OF LUMBAR SPINE, INI 12/16/2015 DAVID LEMONS Ot S39.92XA UNSPECIFIED INJURY OF LOWER BACK, INITIA 12/16/2015 DAVID LEMONS Ot W18.30XA FALL ON SAME LEVEL, UNSPECIFIED, INITIAL 12/16/2015 DAVID LEMONS Ot Y92.[address] IN [facility] NON-INSTITUT ( PRIVATE 12/16/2015 DAVID LEMONS Ot Y99.8 OTHER EXTERNAL CAUSE STATUS 06/21/2016 Ot 625.0 DYSPAREUNIA 06/21/2016 Ot 625.8 FEM GENITAL SYMPTOMS NEC 06/21/2016 Ot 626.2 EXCESSIVE MENSTRUATION 06/21/2016 ONEYDA DAI DO Ot 218.9 UTERINE LEIOMYOMA NOS 06/21/2016 ONEYDA DAI DO Ot 791.9 ABN URINE FINDINGS NEC 06/21/2016 ONEYDA DAI DO Ot V72.63 PRE-PROCEDURAL LABORATORY EXAMINATION 06/21/2016 ONEYDA DAI DO Ot V72.83 EXAM PRE-OPERATIVE NEC 06/21/2016 ONEYDA DAI DO Ot V74.8 SCREEN-BACTERIAL DIS NEC 06/21/2016 ONEYDA DAI DO Ot V76.12 OTH SCREEN MAMMO-MALIGN NEOPLASM OF YANET 06/22/2016 DAVID LEMONS Ot F17.210 NICOTINE DEPENDENCE, CIGARETTES, UNCOMPL 06/22/2016 DAVID LEMONS Ot G44.209 TENSION-TYPE HEADACHE, UNSPECIFIED, NOT 06/22/2016 DAVID LEMONS Ot M43.6 TORTICOLLIS 06/22/2016 DAVID LEMONS Ot M54.2 CERVICALGIA 06/25/2016 DAVID LEMONS Ot F17.210 NICOTINE DEPENDENCE, CIGARETTES, UNCOMPL 06/25/2016 DAVID LEMONS Ot G44.209 TENSION-TYPE HEADACHE, UNSPECIFIED, NOT 06/25/2016 DAVID LEMONS Ot M43.6 TORTICOLLIS 06/25/2016 DAVID LEMONS Ot M54.2 CERVICALGIA Procedures Code Description [place] [address] UA W/ CULTURE IF INDICATED 05/20/2012 OBSTONEYDA ARIZMENDI 28574 CULTURE URINE 76167 UA W/ CULTURE IF INDICATED 06/19/2012 98270 UA LONG DIP 07/09 02231 ROUTINE VENIPUNCTURE 07/12/2012 47901 CMP 07/12/2012 31565 LIPID PANEL 07/12 2755553 GFR CALC (RESULT ONLY) 07/12/2012 93083 CBC 07/12/2012 31380 TSH 07/12/2012 85993 REMOVAL OF NAIL BED 04/09/2013 WEIGHT CHECK Results Encounters ACCT No. Visit Date/Time Discharge Status Pt. Type Provider Facility Loc./Unit Complaint [id number] 06/21/2016 17:20:00 2016 22:23:00 DIS Outpatient DAVID LEMONS Via [facility] ER BACK OF NECK PAIN AND SWELLING/MIGRAINE [id number] 12/06/2015 11:32:00 2015 14:04:00 DIS Emergency DAVID LEMONS [facility] ER FALL/BACK PAIN [id number] 03/20/2014 18:11:00 2013 23:59:59 CLS Outpatient COLTHNAIDA JAMA DO [facility] QUICK [id number] 03/13/2014 10:34:00 2013 23:59:59 CLS Outpatient ONEYDA DAI DO [facility] RAD SCREENING [id number] 09/14/2012 11:11:00 2012 12:23:00 DIS Emergency SOFIYA NADIA VIDES [facility] ER VAG BLEEDING [id number] 09/03/2012 07:50:00 2012 12:15:00 DIS Outpatient ONEYDA DAI DO [facility] SDC FIBROIDS [id number] 09/02/2012 09:13:00 2012 23:59:59 CLS Outpatient ONEYDA DAI DO [facility] PREOP FIBROIDS [id number] 03/04/2014 14:29:00 Document Registration [id number] 03/29/2012 13:00:00 Document Registration [id number] 01/10/2012 10:27:00 Document Registration [id number] 10/20/2011 17:32:00 Document Registration [id number] 07/09/2011 15:35:00 Document Registration [id number] 05/20/2011 13:37:00 Document Registration [id number] 03/30/2011 01:40:00 Document Registration [id number] 12/08/2010 09:34:00 Document Registration [id number] 07/20/2010 14:11:00 Document Registration
--- OUTSIDE RECORDS SUMMARY | 2016-07-16 05:09 | XMS REPORT ---
Author Author CHRIS TANG [facility] eClinicalWorks Address Unknown Phone Unavailable Care Team Providers Care Ranch Hand Supervisor Name Role Phone CHRIS TANG CP Unavailable Allergies No Known Allergies Problems Problem Type Condition Code Onset Dates Condition Status Problem Hematuria, unspecified 599.70 Active Problem Dermatophytosis of nail 110.1 Active Problem Unspecified backache 724.5 Active Problem Encounter for long-term (current) use of other medications V58.69 Active Problem Major depressive disorder, recurrent episode, moderate 296.32 Active Problem Obesity, unspecified 278.00 Active Problem Anxiety state, unspecified 300.00 Active Problem Leiomyoma of uterus, unspecified 218.9 Active Problem Excessive or frequent menstruation 626.2 Active Problem Attention deficit disorder of childhood without mention of hyperactivity 314.00 Active Problem Dysmenorrhea 625.3 Active Medications Medication Code System Code Instructions Start Date End Date Status Dosage Dexedrine [facility] [address]-17 10 mg Orally Once a day June 16, 2015 2 tablets Results No Known Results Summary Purpose eClinicalWorks Submission
--- OUTSIDE RECORDS SUMMARY | 2016-07-16 05:09 | XMS REPORT ---
Author Author CHRIS TANG [facility] e[employer]Works Address Unknown Phone Unavailable Care Team Providers Care Casing Worker Name Role Phone CHRIS TANG CP Unavailable Allergies, Adverse Reactions, Alerts Substance Reaction Event Type N.K.D.A. Info Not Available Non Drug Allergy Problems Problem Type Condition Code Onset Dates Condition Status Problem Hematuria, unspecified 599.70 Active Problem Dermatophytosis of nail 110.1 Active Problem Unspecified backache 724.5 Active Problem Major depressive disorder, recurrent episode, moderate 296.32 Active Problem Obesity, unspecified 278.00 Active Problem Anxiety state, unspecified 300.00 Active Problem Leiomyoma of uterus, unspecified 218.9 Active Problem Excessive or frequent menstruation 626.2 Active Problem Attention deficit disorder of childhood without mention of hyperactivity 314.00 Active Problem Dysmenorrhea 625.3 Active Assessment Anxiety F41.9 Active Assessment Acute upper respiratory infection, unspecified J06.9 Active Problem Encounter for long-term (current) use of other medications V58.69 Active Medications Medication Code System Code Instructions Start Date End Date Status Dosage tramadol ND 0 50 mg Apr 03, 2014 take 1 tablet (50 mg) by oral route every 6 hours as needed PRN pain Naproxen [facility] [address]-77 500 MG Orally every 12 hrs October 09, 2014 1 tablet as needed Estradiol [facility] [address]-00 1 mg October 04, 2012 take 1 tablet (1 mg ) by oral route once daily Xanax [facility] [address]-91 0.5 MG Orally 2 times a day Apr 30, 2015 1 tablet Fluoxetine HCl [facility] [address]-38 40 MG Orally Once a day Apr 30, 2015 1 capsule in the morning Procedures Procedure Coding System Code Date Office Visit, Est Pt., Level 3 CPT-4 97845 Apr 30, 2015 Vital Signs Date/Time: Apr 30, 2015 Temperature 96.3 F Weight 204.5 lbs Height 64 in BMI 35.10 Index Blood Pressure Diastolic 80 mmHg Blood Pressure Systolic 122 mmHg Cardiac Monitoring Heart Rate 78 bpm Results No Known Results Summary Purpose eClinicalWorks Submission
--- OUTSIDE RECORDS SUMMARY | 2016-07-16 05:09 | XMS REPORT ---
Author Author CHRIS TANG Organization [employer] Address Unknown Phone Unavailable Care Team Providers Care Atm Mechanic Name Role Phone CHRIS TANG CP Unavailable [...] Instructions Start Date End Date Status Dosage Fluoxetine HCl NDC [id number] 10 MG TAKE ONE CAPSULE BY MOUTH DAILY WITH 20 MG CAPSULE Fluoxetine NDC 0 20 mg Apr 03, 2014 1 capsule by Oral route 1 time per day take with 10 mg cap. Results No Known Results Summary Purpose eClinicalWorks Submission
== END 2016-06-21 22:23 | disposition home or self-care (01) ==
LOC: EDUNIT# 17:19 → ER 17:20
DX: M43.6 Torticollis (principal); G44.209 Tension-type headache, unspecified, not intractable; F17.210 Nicotine dependence, cigarettes, uncomplicated
CPT/HCPCS: 96372; 99283

== ENCOUNTER → 2016-12-06 | Outpatient (CLI) | payer OTHER ==
[~2016-12-06] MED LIST changes: +ALPR2TAB2 PO; +NAPR500T PO
--- NOTE | 2016-12-06 12:18 | Diagnostic Imaging Report ---
Three views of the right knee. INDICATION: Injury. History of ligament tear. FINDINGS: No fracture, dislocation, or radiopaque foreign body is seen. No suprapatellar effusion is noted. The joint alignment and articular surface appear unremarkable. IMPRESSION: Unremarkable exam. Dictated by: Dictated on workstation # [id number]
== END ==
LOC: RAD 10:29
PROVIDERS: ATTEND Orthopaedic Surgery
DX: M22.41 Chondromalacia patellae, right knee (principal)
CPT/HCPCS: 73562

== ENCOUNTER 2017-03-13 15:46 | Emergency (ER) | payer OTHER ==
[~2017-03-13] VITALS: Ht 167.6 cm; Wt 81.6 kg
[~2017-03-13 15:46] MED LIST changes: +NAPR-1071 PO; -NAPR500T PO
--- NOTE | 2017-03-13 16:26 | ED Lower Extremity ---
General Chief Complaint: Lower Extremity Stated Complaint: R KNEE INJ Nursing Triage Note: c/o chronic knee pain. Pt reports 2 knee surgeries last 2 years but has continued to have pain. Pt originally hurt her knee on the job 2-3 years ago. Nursing Sepsis Screen: No Definite Risk Source: patient Exam Limitations: no limitations History of Present Illness Time seen by provider: 16:05 Initial Comments Here with chronic knee pain. Left knee injury on the job to 3 years ago and has had 2 knee surgeries last 2 years. States the pain is worse. She talked to her Worker's patient manager and was told to come to the ER for evaluation. Denies any new injury but states that it just still hurts. She states Tylenol and ibuprofen are not working. She did know what else to do so she came here. She is following with Dr. Marinelli. Onset: other Severity: moderate (chronic) Pain/Injury Location: right knee Method of Injury: unknown Modifying Factors: Improves With Immobilization, Worse With Movement Allergies and Home Medications Allergies Coded Allergies: No Known Drug Allergies (Unverified , 03/30/11) Home Medications Alprazolam 2 Mg Tablet, 2 MG PO BID PRN for ANXIETY, (Reported) Cyclobenzaprine HCl 10 Mg Tablet, 10 MG PO Q8H PRN for SPASMS, #14 Ref 0 Prescribed by: DAVID MOHAN on 12/06/15 134 Cyclobenzaprine HCl 10 Mg Tablet, 10 MG PO Q8H PRN for SPASMS, #14 Ref 0 Prescribed by: DAVID MOHAN on 06/21/162137 Fluoxetine HCl 40 Mg Capsule, 60 MG PO DAILY, (Reported) Naproxen 500 Mg Tablet, 500 MG PO BID, #20 Ref 0 Prescribed by: DAVID MOHAN on 06/21/162137 Prednisone 20 Mg Tab, 40 MG PO DAILY for 5 Days, #10 Ref 0 Prescribed by: DAVID MOHAN on 06/21/162137 Tramadol HCl 50 Mg Tablet, 50 MG PO Q4H PRN for PAIN, #20 Ref 0 Prescribed by: DAVID MOHAN on 12/06/15 1349 Constitutional: see HPI, No chills, No fever Respiratory: no symptoms reported Cardiovascular: no symptoms reported Musculoskeletal: see HPI, joint pain, muscle pain Skin: no symptoms reported Psychiatric/Neurological: Anxiety, Denies Weakness Past Ugxkqak-Hhdwyo-Wqwghh Hx Patient Social History Alcohol Use: Denies Use Recreational Drug Use: No Smoking Status: Current Everyday Smoker Type Used: Cigarettes Recent Foreign Travel: No Contact w/Someone Who Travel: No Recent Infectious Disease Expo: No Recent Hopitalizations: No Immunizations Up To Date Tetanus Booster (TDap): Less than 5yrs PED Vaccines UTD: Yes Date of Pneumonia Vaccine: Nov 24, 2009 Date of Influenza Vaccine: Dec 25, 2011 Surgeries History of Surgeries: Yes Surgeries: Section, Hysterectomy, Orthopedic Respiratory Respiratory Disorders: Tuberculosis Reproductive System Hx Reproductive Disorders: Yes (fibroids) Female Reproductive Disorders: Menstrual Problems 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 Musculoskeletal Musculoskeletal Disorders: Chronic Back Pain Psychosocial Behavioral Health Disorders: Anxiety, Depression Blood Transfusions Adverse Reaction to a Blood Tr: No Reviewed Nursing Assessment Reviewed/Agree w Nursing PMH: Yes Family Medical History Significant Family History: No Pertinent Family Hx, Cancer Physical Exam Vital Signs Vital Sign - Last 12Hours 03/13/17 16:06 Temp 98.2 Pulse 106 Resp 20 B/P (MAP) 162/122 (135) Pulse Ox 98 Capillary Refill : Less Than 3 Seconds General Appearance: WD/WN, no apparent distress Cardiovascular: regular rate, rhythm, no murmur Respiratory: lungs clear, normal breath sounds Knees: left knee non-tender, left knee normal inspection, left knee normal range of motion, right knee soft tissue tenderness, right knee other (no joint laxity or) Ankles: bilateral ankle non-tender, bilateral ankle normal inspection, bilateral ankle normal range of motion, bilateral ankle no evidence of injury Neurologic/Psychiatric: alert, oriented x 3 Skin: normal color, warm/dry Progress/Results/Core Measures Results/Orders Vital Signs/I&O Vital Sign - Last 12Hours 03/13/17 16:06 Temp 98.2 Pulse 106 Resp 20 B/P (MAP) 162/122 (135) Pulse Ox 98 Blood Pressure Mean: 135 Progress Note : Progress Note Seen and evaluated. Patient's work comp customer care consultant did call during the visit. She did authorize visit. There is nothing new to do at this point. We will initiate steroids in an attempt to reduce some of the inflammation and I will write her for 3 days only of pain medicine with the understanding that this is all that we can do and she will need to get further prescriptions through her primary clinic or her Worker's Comp. clinic as indicated. Patient verbalize understanding. Discharged home with return precautions. Patient verbalize understanding instructions and agreement with plan. I did discuss with her the fact that she is on dextromethorphan plus alprazolam and accommodation of narcotic with this is certainly may lead to addiction. This is why we will limit pain medication prescriptions in the narcotic realm. Patient verbalize understanding. Departure Impression Impression: Primary Impression: Chronic knee pain Qualified Codes: M25.561 - Pain in right knee; G89.29 - Other chronic pain Disposition: HOME, SELF-CARE Condition: Stable Departure-Patient Inst. Decision time for Depature: 16:41 Referrals: [facility] ([place]Family) Primary Care Physician LIV MARINELLI MD Patient Instructions: Chronic Knee Pain (DC), Knee Sprain (DC) Add. Discharge Instructions: All discharge instructions reviewed with patient and/or family. Voiced understanding. You may take Tylenol (acetaminophen) 1000 mg every 8 hours as needed for pain. You may take ibuprofen 600 mg every 8 hours as needed for pain. Do not exceed these doses. Do not take the Tylenol/acetaminophen with the prescribed pain medicine as they both have Tylenol/acetaminophen in them. Follow-up with your primary care doctor or worker's comp doctor this week for recheck and further evaluation. Return for worse pain, fever, swelling, weakness, breathing problems or other concerns as needed. Scripts Prednisone (Prednisone) 20 Mg Tab 40 MG PO DAILY, #14 TAB 0 Refills Prov: IVÁN MANNING MD 03/13/17 Hydrocodone/Acetaminophen (Hydrocodon-Acetaminoph 7.5-325) 1 Each Tablet 1 EACH PO Q6H, #12 TAB 0 Refills Prov: IVÁN MANNING MD 03/13/17 IVÁN MANNING MD Mar 13, 2017 16:26
[2017-03-13] MEDS ORDERED: HYDR-3816 PO (16:44)
[2017-03-13] MEDS ORDERED: PRD20T PO (16:44)
[2017-03-13 16:55] VITALS: BP 156/90
== END 2017-03-13 16:55 | disposition home or self-care (01) ==
LOC: EDUNIT# 15:46 → ER 15:48
DX: G89.29 Other chronic pain (principal); M25.561 Pain in right knee; F41.9 Anxiety disorder, unspecified; F32.9 Major depressive disorder, single episode, unspecified; F17.210 Nicotine dependence, cigarettes, uncomplicated; Z90.710 Acquired absence of both cervix and uterus; Z87.09 Personal history of other diseases of the respiratory system; Z87.59 Personal history of other complications of pregnancy, childbirth and the puerperium; Z87.828 Personal history of other (healed) physical injury and trauma; Z98.890 Other specified postprocedural states
CPT/HCPCS: 99283

== ENCOUNTER → 2017-05-26 | Outpatient (CLI) | payer OTHER ==
[~2017-05-26] MED LIST changes: +HYDR-34 PO
--- NOTE | 2017-05-26 10:47 | Diagnostic Imaging Report ---
PROCEDURE: MRI right joint lower extremity without contrast. TECHNIQUE: Multiplanar, multisequence MR imaging of the right knee was performed without contrast. COMPARISON: Knee radiographs of 12/06/2016 INDICATION: Knee pain after fall approximately one month ago. FINDINGS: MENISCI Medial meniscus: Normal. Lateral meniscus: Normal. LIGAMENTS ACL: Intact. PCL: Intact. MCL: Intact. LCL: The lateral collateral ligamentous complex is intact. EXTENSOR MECHANISM The extensor mechanism is intact. CARTILAGE Articular cartilage throughout the knee is well preserved. There is no acute chondral injury or osteochondral defect. BONE No fracture, stress fracture or osteonecrosis. SOFT TISSUE No knee effusion or Sanchez's cyst. IMPRESSION: 1. No acute internal derangement. Specifically, no meniscal tear or articular cartilage injury. 2. The cruciate and collateral ligaments are normal. 3. No fracture or bone contusion. Dictated by: Dictated on workstation # [id number]
== END ==
LOC: RAD 08:47
PROVIDERS: ATTEND Nurse Practitioner Family
DX: M25.461 Effusion, right knee (principal); M25.561 Pain in right knee; W19.XXXA Unspecified fall, initial encounter
CPT/HCPCS: 73721

== ENCOUNTER → 2017-09-21 | Outpatient (CLI) | payer OTHER ==
--- NOTE | 2017-09-21 12:29 | Diagnostic Imaging Report ---
PROCEDURE: MRI lumbar spine. INDICATION: Status post fall on 05/20/2017. Low back pain since then. Right leg with intermittent tingling.. TECHNIQUE: Multiplanar and multisequence noncontrast magnetic resonance imagine was performed of the lumbar spine. CORRELATION STUDY: None FINDINGS: There is normal alignment and curvature of the lumbar spine. Lumbar vertebral body heights are overall fairly well maintained. A few areas of Schmorl's nodes deformities of T11, T12 and L1 levels. No surrounding edema. Probable small hemangiomas particularly L1, L5 and S2 levels. Small sacral cyst S2 level. The conus appears unremarkable. L5-S1: Unremarkable. L4-L5: Slight loss of disc space height with low velocity and intrasubstance signal intensity. There is a right paramedian disc protrusion. This area measures approximately 10 x 4 mm. Slight asymmetric narrowing of the right ventrolateral spinal canal. Neural foramina otherwise maintained. No evidence for nerve root impingement. No significant spinal canal stenosis. L3-L4: Unremarkable. L2-L3: Unremarkable. L1-L2: Unremarkable. T2 hyperintense lesion of the left kidney favoring probable cyst. IMPRESSION: 1. Small right paramedian disc protrusion at the L4-L5 level. This does result in slight narrowing of the right ventrolateral spinal canal. Dictated by: Dictated on workstation # [id number]
== END ==
LOC: RAD 08:52
PROVIDERS: ATTEND Nurse Practitioner Community Health
DX: M51.26 Other intervertebral disc displacement, lumbar region (principal)
CPT/HCPCS: 72148

== ENCOUNTER → 2020-08-31 | Outpatient (CLI) | payer SELFPAY ==
[~2020-08-31] MED LIST changes: -TRAM50TA2 PO
== END ==
LOC: RT 08:00
PROVIDERS: ATTEND Nurse Practitioner Family
DX: R05 Cough (principal)

== ENCOUNTER 2021-04-04 09:46 | Outpatient (CLI) | payer SELFPAY ==
[~2021-04-04] VITALS: Ht 162.6 cm; Wt 97.1 kg
[~2021-04-04 09:46] MED LIST changes: +CYCL10TA25 PO
[2021-04-04 09:49] VITALS: BP 120/78
[2021-04-04] MEDS ORDERED: EPINEPHrine INJECTION 1 MG/ML AMP IM PRN (10:00)
[2021-04-04] MEDS ORDERED: ACETAMINOPHEN 500 MG TAB (TYLENOL) PO PRN (10:00)
[2021-04-04] MEDS ORDERED: ONDANSETRON 4 MG/2 ML (SDV) Z0FRAN IV PRN (10:00)
[2021-04-04] MEDS ORDERED: diphenhydrAMINE 50 MG/ML INJ (BENADRYL) IV PRN (10:00)
[2021-04-04] MEDS ORDERED: SOTROVIMAB 500 MG/NS 100 ML IVPB IV ONE ×2 (10:00)
[2021-04-04 11:15] VITALS: BP 123/80
== END 2021-04-04 11:30 ==
LOC: INFUSION 09:46
PROVIDERS: ATTEND Nurse Practitioner Family
DX: U07.1 COVID-19 (principal)

== ENCOUNTER → 2021-10-27 | Outpatient (CLI) | payer OTHER ==
--- NOTE | 2021-10-27 13:06 | Diagnostic Imaging Report ---
PROCEDURE: MRI lumbar spine. TECHNIQUE: Multiplanar, multisequence MRI of the lumbar spine was performed without contrast. INDICATION: Back pain after injury. EXAMINATION:: Lumbar spine MRI without contrast 10/27/2021. COMPARISON: 09/21/2017 FINDINGS: There is normal height and alignment of the vertebral bodies. The tip of the conus is unremarkable in appearance and location. L1-L2: There is bilateral facet hypertrophy. No central or neural foraminal stenosis. L2-L3: There is bilateral facet hypertrophy with no central or neural foraminal stenosis. L3-L4: There is intervertebral disc space narrowing and disc desiccation. There is bilateral facet and ligamentum flavum hypertrophy. There is no central stenosis. There is moderate bilateral neural foraminal narrowing. L4-L5: There is intervertebral disc space narrowing and disc desiccation. There is bilateral facet and ligamentum flavum hypertrophy. There is a broad-based bulging disc with a central annular tear. There is no significant central stenosis. There is moderate to severe bilateral neural foraminal stenosis. L5-S1: There is bilateral facet hypertrophy. There are cystic change posterior to the left facet most consistent with synovial cyst. Minimal central disc protrusion is noted. No central stenosis is appreciated. The neural foramina appear patent. The visualized intra-abdominal structures demonstrate incompletely imaged cystic lesions in the left kidney. No acute abnormality appreciated. IMPRESSION: 1. Multilevel degenerative findings as described above with severe bilateral neural foraminal stenosis noted at the L4-L5 level. Other findings as detailed above. Dictated by: Dictated on workstation # [id number]
== END ==
LOC: RAD 12:30
PROVIDERS: ATTEND Orthopaedic Surgery Orthopaedic Surgery of the Spine
DX: M47.816 Spondylosis without myelopathy or radiculopathy, lumbar region (principal); M47.817 Spondylosis without myelopathy or radiculopathy, lumbosacral region; M51.26 Other intervertebral disc displacement, lumbar region; M51.27 Other intervertebral disc displacement, lumbosacral region; M51.36 Other intervertebral disc degeneration, lumbar region; M48.061 Spinal stenosis, lumbar region without neurogenic claudication; M85.68 Other cyst of bone, other site
CPT/HCPCS: 72148